=== PATIENT | male | born 1950 | race Hispanic/Latino ===

== ENCOUNTER 2020-04-01 11:37 | Emergency (ER) | payer MEDICARE ==
--- NOTE | 2020-04-01 12:47 | RAD REPORT ---
EXAM DESCRIPTION: US - Extremity Venous Uni Ltd - 04/01/2020 12:42 pm CLINICAL HISTORY: leg pain Leg swelling and edema. COMPARISON: <Comparisons> FINDINGS: Left lower extremity venous system was interrogated with Doppler technique. Normal flow, c ompressibility and augmentation was noted. There is no DVT present. IMPRESSION: No evidence of left lower extremity deep venous thrombosis.
--- NOTE | 2020-04-01 13:05 | ER ---
Nurse's Notes [facility] Name: Pierce Hwang Age: 69 yrs Sex: Male : 1950 Arrival Date: 04/01/2020 Time: 11:42 Bed 8 Private MD: Diagnosis: Pain in left leg Presentation: 04/01 11:45 Chief complaint: Patient states: "I was doing yard work yesterday and I felt a sting on aa5 my chest twice, like something bit me but it didn't". Pt also reports left low back pain radiating to left leg. Reports diarrhea yesterday but denies any today. Pt also reports "nasty taste in my mouth". Pt also reports fatigue x 2 weeks ago. Denies cough/fever. 11:45 Ebola Screen: Patient negative for fever greater than or equal to 101.5 degrees aa5 Fahrenheit, and additional compatible Ebola Virus Disease symptoms. Initial Sepsis Screen: Does the patient meet any 2 criteria? No. Patient's initial sepsis screen is negative. Does the patient have a suspected source of infection? No. Patient's initial sepsis screen is negative. Risk Assessment: Do you want to hurt yourself or someone else? Patient reports no desire to harm self or others. Onset of symptoms was March 2020. 11:45 Method Of Arrival: Ambulatory aa5 11:45 Acuity: JOE 3 aa5 11:45 Coronavirus screen: diarrhea, fatigue. aa5 Historical: - Allergies: 11:48 NKDA; aa5 - Home Meds: 12:00 lisinopril 20 mg Oral tab 1 tab once daily [Active]; tw2 - PMHx: 11:48 Hyperlipidemia; Hypertension; aa5 - PSHx: 11:48 right leg; Hernia repair; aa5 - Immunization history:: Adult Immunizations unknown. - Social history:: Smoking status: Patient denies any tobacco usage or history of. Screenin:59 Abuse screen: Denies threats or abuse. Nutritional screening: No deficits noted. tw2 Tuberculosis screening: No symptoms or risk factors identified. Fall Risk None identified. Assessment: 11:58 General: Appears in no apparent distress. Behavior is calm, cooperative, appropriate tw2 for age. Pain: Pain: Complains of pain in left leg. 11:58 Neuro: Level of Consciousness is awake, alert, obeys commands, Oriented to person, tw2 place, time, situation. Cardiovascular: Heart tones S1 S2 Patient's skin is warm and dry. Respiratory: Airway is patent Respiratory effort is even, unlabored, Respiratory pattern is regular, symmetrical, Breath sounds are clear bilaterally. GI: No signs and/or symptoms were reported involving the gastrointestinal system. : No signs and/or symptoms were reported regarding the genitourinary system. EENT: No signs and/or symptoms were reported regarding the EENT system. Derm: No signs and/or symptoms reported regarding the dermatologic system. Musculoskeletal: Range of motion: intact in all extremities. 13:12 Reassessment: Patient appears in no apparent distress at this time. No changes from tw2 previously documented assessment. Patient and/or family updated on plan of care and expected duration. Pain level reassessed. Patient is alert, oriented x 3, equal unlabored respirations, skin warm/dry/pink. Vital Signs: 11:45 BP 127 / 70; Pulse 56; Resp 18 S; Temp 98.7(O); Pulse Ox 99% on R/A; Weight 81.65 kg aa5 (R); Height 5 ft. 5 in. (165.10 cm) (R); Pain 7/10; 13:00 BP 131 / 88; Pulse 68; Resp 17; Pulse Ox 99% on R/A; tw2 11:45 Body Mass Index 29.95 (81.65 kg, 165.10 cm) aa5 ED Course: 11:42 Patient arrived in ED. mr 11:45 Arm band placed on. aa5 11:54 Triage completed. aa5 11:55 [facility] 11:55 Dave Stinson MD is Attending Physician. jmm 11:59 Christie Farah, RAJESH is Primary Nurse. tw2 11:59 Bed in low position. Call light in reach. tw2 12:43 US Extremity Venous Unilateral Ltd In Process Unspecified. EDMS 13:12 No provider procedures requiring assistance completed. Patient did not have IV access tw2 during this emergency room visit. Administered Medications: No medications were administered Outcome: 13:05 Discharge ordered by . jmm 13:12 Discharged to home ambulatory. tw2 13:12 Condition: stable 13:12 Discharge instructions given to patient, Instructed on discharge instructions, follow up and referral plans. no drinking with medication, no driving heavy equipment, medication usage, Demonstrated understanding of instructions, follow-up care, medications, Prescriptions given X 1. 13:16 Patient left the ED. tw Signatures: Dispatcher [employer] EDMS Mario Molina PA PA jmm Carolann Bales, Migdalia, RN RN aa5 Christie Farah RN RN tw Corrections: (The following items were deleted from the chart) 11:55 11:45 BP 127 / 70; Pulse 56bpm; Resp 18bpm; Spontaneous; Pulse Ox 99% RA; Temp 98.7F aa5 Oral; 81.65 kg Reported; Height 5 ft. 5 in. Reported; BMI: 29.9; aa5 1156 11:45 Chief complaint: Patient states: "I was doing yard work yesterday and I felt a aa5 sting on my chest twice, like something bit me but it didn't". Pt also reports left low back pain radiating to left leg. Reports diarrhea yesterday but denies any today. Pt also reports "nasty taste in my mouth" aa5 11:45 Chief complaint: Patient states: "I was doing yard work yesterday and I felt a aa5 sting on my chest twice, like something bit me but it didn't". Pt also reports left low back pain radiating to left leg. Reports diarrhea yesterday but denies any today. Pt also reports "nasty taste in my mouth". Pt also reports fatigue x 2 weeks ago. aa5 12:00 11:48 Home Meds: None; aa5 tw 13:15 11:58 Pain: tw2 tw2
--- NOTE | 2020-04-01 13:05 | EDPHYS ---
Physician Documentation [facility] Name: Pierce Hwang Age: 69 yrs Sex: Male : 1950 Arrival Date: 04/01/2020 Time: 11:42 Bed 8 Private MD: ED Physician Dave Stinson HPI: 04/01 12:01 This 69 yrs old Male presents to ER via Ambulatory with complaints of Bee jmm Sting, Leg Pain. 12:01 The patient presents with pain, that is acute. Onset: The symptoms/episode jmm began/occurred 1 day(s) ago. Modifying factors: The symptoms are alleviated by nothing. the symptoms are aggravated by nothing. Associated signs and symptoms: Pertinent positives: calf tenderness, swelling, Pertinent negatives fever, numbness. This is a 69 year old male with a history of hlp, htn that presents to the ED with complaints of left leg pain beginning yesterday, radiating into the groin. Patient states he had difficulty walking. Patient states also having pain in his left glut. Patient currently denies chest pain, shortness of breath. Denies back injury. Denies incontinence, weakness, numbness to the leg. . Historical: - Allergies: 11:48 NKDA; aa5 - Home Meds: 12:00 lisinopril 20 mg Oral tab 1 tab once daily [Active]; tw2 - PMHx: 11:48 Hyperlipidemia; Hypertension; aa5 - PSHx: 11:48 right leg; Hernia repair; aa5 - Immunization history:: Adult Immunizations unknown. - Social history:: Smoking status: Patient denies any tobacco usage or history of. ROS: 12:01 Constitutional: Negative for fever, chills, and weight loss, Cardiovascular: Negative jmm for chest pain, palpitations, and edema, Respiratory: Negative for shortness of breath, cough, wheezing, and pleuritic chest pain, Abdomen/GI: Negative for abdominal pain, nausea, vomiting, diarrhea, and constipation. 12:01 MS/extremity: Positive for pain. 12:01 All other systems are negative. Exam: 12:01 Constitutional: This is a well developed, well nourished patient who is awake, alert, jmm and in no acute distress. Head/Face: atraumatic. Eyes: EOMI, no conjunctival erythema appreciated ENT: Moist Mucus Membranes Neck: Trachea midline, Supple Chest/axilla: Normal chest wall appearance and motion. Cardiovascular: Regular rate and rhythm. No edema appreciated Respiratory: Normal respirations, no respiratory distress appreciated Abdomen/GI: Non distended, soft Back: Normal ROM Skin: General appearance color normal 12:01 Musculoskeletal/extremity: ROM: intact in all extremities, full dorsalis pulse, < 2 sec dist cap refill, NVI. 12:01 Skin: Appearance: Color: normal in color. 12:01 Neuro: Orientation: is normal, Mentation: is normal, Memory: is normal. 12:01 Psych: Behavior/mood is pleasant, cooperative. Vital Signs: 11:45 BP 127 / 70; Pulse 56; Resp 18 S; Temp 98.7(O); Pulse Ox 99% on R/A; Weight 81.65 kg aa5 (R); Height 5 ft. 5 in. (165.10 cm) (R); Pain 7/10; 13:00 BP 131 / 88; Pulse 68; Resp 17; Pulse Ox 99% on R/A; tw2 11:45 Body Mass Index 29.95 (81.65 kg, 165.10 cm) aa5 MDM: 12:01 Patient medically screened. [facility] 13:01 Data reviewed: vital signs, nurses notes. Counseling: I had a detailed discussion with bryon the patient and/or guardian regarding: the historical points, exam findings, and any diagnostic results supporting the discharge/admit diagnosis, radiology results, the need for outpatient follow up, to return to the emergency department if symptoms worsen or persist or if there are any questions or concerns that arise at home. ED course: Patient is alert and non toxic in appearance in the ED. Pain most likely MS. Patient was working out in his yard yesterday. Patient currently denies chest pain, shortness of breath. I do not suspect ACS or PE. US of the leg is negative for DVT. Full dorsalis pulse, I do not suspect PVD/occlusion. No incontinence, extensor hallucis longus intact, negative straight leg raise. I do not suspect sciatica, cord compression, cauda equina. Patient will follow up with pcp in 2 to 3 days and otherwise given strict return precautions to return to the ED if he develops chest pain, SOB, fever, abdominal pain, worsening leg pain, ect. Patient understood and agrees with the plan of care. . 04/01 12:11 Order name: US Extremity Venous Unilateral Ltd; Complete Time: 12:49 [facility] Administered Medications: No medications were administered Disposition: 17:38 Co-signature as Attending Physician, Dave Stinson MD I agree with the assessment and kdr plan of care. Disposition: 04/01/20 13:05 Discharged to Home. Impression: Pain in left leg. - Condition is Stable. - Discharge Instructions: Musculoskeletal Pain. - Prescriptions for orphenadrine citrate 100 mg Oral Tablet Sustained Release - take 1 tablet by ORAL route 2 times per day As needed; 20 tablet. - Medication Reconciliation Form, Thank You Letter, Antibiotic Education, Prescription Opioid Use form. - Follow up: Private Physician; When: 2 - 3 days; Reason: Recheck today's complaints, Continuance of care, Re-evaluation by your physician. Signatures: Dispatcher [employer] EDMS Dave Stinson MD MD kdr Mickail, Joel, PA PA jmm Calderon, Audri RN RN aa5 Christie Farah RN RN tw2 Corrections: (The following items were deleted from the chart) 12:00 11:48 Home Meds: None; aa5 tw2 13:16 13:05 04/01/2020 13:05 Discharged to Home. Impression: Pain in left leg. Condition is tw2 Stable. Forms are Medication Reconciliation Form, Thank You Letter, Antibiotic Education, Prescription Opioid Use. Follow up: Private Physician; When: 2 - 3 days; Reason: Recheck today's complaints, Continuance of care, Re-evaluation by your physician. bryon
[2020-04-05 14:13] VITALS: BP 127/70; TEMP 98.7; O2SAT 99
== END 2020-04-01 13:16 | disposition home or self-care (01) ==
LOC: ER 11:37
DX: M79.605 Pain in left leg (principal); W57.XXXA Bitten or stung by nonvenomous insect and other nonvenomous arthropods, initial encounter; I10 Essential (primary) hypertension
CPT/HCPCS: 93971; 99283

== ENCOUNTER 2021-07-28 09:34 | Emergency (ER) | payer MEDICARE ==
--- OUTSIDE RECORDS SUMMARY | 2021-07-28 09:37 | XMS REPORT | Continuity of Care Document ---
:1950 Author Organization [facility] t Address [address] [place] [address] [address]. [address] [place] [address] Care Team Providers Name Role Phone AlfonzokerwinAmy Marsh Attending Clinician Payers Payer Name Policy Type Policy Number Effective Date Expiration Date S ource Problems Condition Condition Condition Status Onset Resolution Last Treating Co mments Source Name Details Category Date Date Treatment Clinician Date No known No known Disease Unive rs active active ity of problems problems [facility] Allergies, Adverse Reactions, Alerts Allergy Allergy Status Severity Reaction(s) Onset Inactive Treating Comm ents Source Name Type Date Date Clinician NO KNOWN Drug Active Univers ALLERGIE Class ity of S [facility] Social History Social Habit Start Date Stop Date Quantity Comments Source Sex Assigned At Uni versity [facility] Exposure to SARS-CoV-2 Not sure [facility] [place] (event) [facility] Smoking Status Start Date Stop Date Source Unknown if ever smoked Universit [facility] Medications Ordered Filled Start Stop Current Ordering Indication Dosage Frequency Signature Comments Components Source Medication Medication Date Date Medication? Clinician (SIG) Name Name NaCl 0.9% 2019-08 2020- No 1000mL at 999 Uni vers (NS) bolus - 11-22 mL/hr, ity of infusion 21:00: 23:18 1,000 mL, Shar as 1,000 mL 00 :00 IV Medical Infusion, Branch ONCE, 1 dose, 06/26/20 at 1500, KVNG No known No Univers medications [facility] Vital Signs Vital Name Observation Time Observation Value Comments Source Systolic blood 2020-06-26 22:00:00 152 mm[Hg] Univer sity of pressure [facility] Diastolic blood 2020-06-26 22:00:00 75 mm[Hg] Unive rsity of pressure [facility] Heart rate 2020-06-26 22:00:00 52 /min [facility] Respiratory rate 2020-06-26 22:00:00 18 /min [facility] Oxygen saturation in 2020-06-26 22:00:00 99 /min [facility] Arterial blood by [facility] Pulse oximetry Branch Body temperature 2020-06-26 19:38:00 36.67 Ruth Ann [facility] Body weight 2020-06-26 19:38:[address] [facility] Procedures Procedure Date / Time Performing Clinician Source Performed CT HEAD WO CONTRAST 2020-06-26 20:44:17 Amy Curran [facility] LIPASE 2020-06-26 19:45:[address] [facility] TROPONIN I 2020-06-26 19:45:[address] [facility] COMP. METABOLIC PANEL 2020-06-26 19:45:00 [id number] CBC WITH DIFF 2020-06-26 19:45:[address] [facility] PROTHROMBIN TIME / INR 2020-06-26 19:45:00 Amy Curran U [facility] ACTIVATED PARTIAL 2020-06-26 19:45:00 [facility] (ID NOW RAPID 2020-06-26 19:45:00 Amy Curran U [facility] TESTING) [facility] NOTICE OF PRIVACY 2020-06-26 19:22:14 Doctor Unassigned, No [facility] PRACTICES Name Medical Branch Encounters Start End Encounter Admission Attending Care Care Encounter Source Date/Time Date/Time Type Type Clinicians Facility Department ID 2020-06-26 2020-06-26 Emergency VALENTINE Curran [id number] Univers 13:32:00 17:19:00 Amy Wong [id number] [facility] Seth [id number] [facility] [id number] [facility] 084 Branch 2020-06-26 2020-06-26 Emergency X [facility] ERT [id number] Univers 13:23:00 13:23:00 ity [facility] Results Test Description Test Time Test Comments Results Result Sourc e Comments CT HEAD WO 2020-06-06 No acute [facility] CONTRAST 2 [facility] 22:09:13 abnormality. Branch Preliminary Report Dictated by Resident: Kelsi Hedrick MD., have reviewed this study and agree with the abovereport.CT HEAD WO CONTRAST HISTORY: Diplopia COMPARISON: None TECHNIQUE: Contiguous axial CT images of the head were obtained without theuse of intravenous contrast. Coronal and sagittal reformats were provided. FINDINGS: Suboptimal field of view coverage, cerebellar tonsils are not included. The ventricles and cerebral sulci are normal in caliber and configuration.No hydrocephalus, midline shift or pathological extra-axial fluidcollection is present. The basal cisterns are unremarkable. There is no acute intracranial hemorrhage or significant mass effect. Noparenchymal attenuation abnormality. The howell-white matter differentiationis preserved. Intracranial atherosclerosis. Partial empty sellaconfiguration. The mastoid air cells and paranasal air sinuses are clear. The calvariumand central skull base are unremarkable. [facility], Radiant Results Inft User - 06/26/2020 4:10 PM CSTCT HEAD WO CONTRASTHISTORY: Diplopia COMPARISON: NoneTECHNIQUE: Contiguous axial CT images of the head were obtained without theuse of intravenous contrast. Coronal and sagittal reformats were provided.FINDINGS:Sub optimal field of view coverage, cerebellar tonsils are not included.The ventricles and cerebral sulci are normal in caliber and configuration.No hydrocephalus, midline shift or pathological extra-axial fluidcollection is present. The basal cisterns are unremarkable.There is no acute intracranial hemorrhage or significant mass effect. Noparenchymal attenuation abnormality. The howell-white matter differentiationis preserved. Intracranial atherosclerosis. Partial empty sellaconfiguration.Th e mastoid air cells and paranasal air sinuses are clear. The calvariumand central skull base are unremarkable.IMPRESSI ONNo acute intracranial abnormality.Prelimina ry Report Dictated by Resident: Kelsi Lewis MD., have reviewed this study and agree with the abovereport. TROPONIN I 2020-06-26 20:18:00 Test Item Value Reference Range Interpretation Comme nts TROPONIN I (test code = <0.012 See_Comment [Au tomated message] The [id number]) system which ge nerated this result tra nsmitted reference range : <=0.034 ng/mL. The refe rence range was not u sed to interpret this result as normal/abnormal . TANISHA (test code = TANISHA) Equal or Less than 0.034 ng/ml---Normal ?Note: Cardiac troponin begins to rise 3-4 hours after the onset of ischemia. Repeat in 4-6 hours if the sample was drawn within 3-4 hours of the onset of the symptom and found normal. Between 0.035 and 0.120 ng/mL--- Borderline. Questionable myocardial injury or necrosis ? ?Note: Serial measurement may be necessary to confirm or exclude the diagnosis of myocardial injury or necrosis; Clinical correlation (symptoms, EKGs, imaging studies, and others) required; Repeat in 4-6 hours if clinically indicated. ? Equal or Higher than 0.121 ng/mL---Abnormal. Myocardial Injury or Necrosis Likely ? Biotin has been reported to cause a negative bias, interpret results relative to patient's use of biotin. ? Lab Interpretation (test Normal code = 08919-7) [facility] (ID NOW RAPID TESTING)2020-06-26 20:13:00 Test Item Value Reference Range Interpretation Comments SARS-CoV-2 Rapid ID NOW Not Detected Not Detected (test code = 89873-6) TANISHA (test code = TANISHA) ID NOW COVID-19 Assay is an isothermal nucleic acid amplification test intended for the qualitative detection of nucleic acid from SARS-CoV-2 viral RNA in nasopharyngeal (WOOL DYER) specimens. It is used under Emergency Use Authorization (EUA) by FDA. The limit of detection (LOD) of the assay is 125 Genome Equivalents/mL. A positive result is indicative of the presence of SARS-CoV-2 RNA. ?Clinical correlation with patient history and other diagnostic information is necessary to determine patient infection status. A negative (Not Detected) result does not preclude SARS-CoV-2 infection. In patients with clinical symptoms and other tests that are consistent with SARS-CoV-2 infection, negative results should be treated as presumptive negative and a new specimen should be tested with alternative PCR molecular test. Invalid: Please collect a new specimen for repeat patient testing if clinically indicated. Lab Interpretation Normal (test code = 51242-5) [facility]. METABOLIC PANEL (22661)2020-06-26 20:07:00 Test Item Value Reference Range Interpretation Comments NA (test code = 139 mmol/L 135-145 3818904750) K (test code = 4.2 mmol/L 3.5-5 7275004655) CL (test code = 102 mmol/L 98-108 9267517843) CO2 TOTAL (test code = 27 mmol/L 23-31 0407609466) AGAP (test code = 2-16 3763769506) BUN (test code = 17 mg/dL 7-23 2353204739) GLUCOSE (test code = 104 mg/dL 70-110 6588601476) CREATININE (test code 0.96 mg/dL 0.6-1.25 = 7799106778) TOTAL BILI (test code 0.8 mg/dL 0.1-1.1 = 8710352621) CALCIUM (test code = 9.3 mg/dL 8.6-10.6 1681047511) T PROTEIN (test code = 7.3 g/dL 6.3-8.2 5984093035) ALBUMIN (test code = 4.4 g/dL 3.5-5 1162900041) ALK PHOS (test code = 78 U/L 34-122 5126234779) ALTv (test code = 17 U/L 5-50 1742-6) AST(SGOT) (test code = 23 U/L 13-40 0047048812) eGFR Calculation mL/min/1.73m2 (Non-) (test code = 2328510229) eGFR Calculation mL/min/1.73m2 () (test code = 4354364200) TANISHA (test code = TANISHA) Association of Glomerular Filtration Rate (GFR) and Staging of Kidney Disease* + -+ + ---+| GFR (mL/min/1.73 m2) ?| With Kidney Damage ?| ?Without Kidney Damage+ -------+ ------+ ---------+| ?>90 ?| ?Stage one ?| ? Normal ?+ --+ -+ ----+| ?60-89 ?| ?Stage two ?| ? Decreased GFR ? + -+ + ---+| ?30-59 ?| ?Stage three ?| ? Stage three ? + -+ + ---+| ?15-29 ?| ?Stage four ? | ? Stage four ?+ --+ -+ ----+| ?<15 (or dialysis) ? ?| ?Stage five ? | ? Stage five ?+ --+ -+ ----+ *Each stage assumes the associated GFR level has been in effect for at least three months. ?Stages 1 to 5, with or without kidney disease, indicate chronic kidney disease. Notes: Determination of stages one and two (with eGFR >59mL/min/1.73 m2) requires estimation of kidney damage for at least three months as defined by structural or functional abnormalities of the kidney, manifested by either:Pathological abnormalities or Markers of kidney damage (including abnormalities in the composition of the blood or urine or abnormalities in imaging tests). [facility], [id number] 20:07:00 Test Item Value Reference Range Interpretation Comments LIPASE (test code = 3270719032) 129 U/L 0-220 Lab Interpretation (test code = Normal 17569-8) [facility] WITH [id number] 20:07:00 Test Item Value Reference Range Interpretation Comments WBC (test code = See_Comment [Automated 5760-2) message] The sy stem which generated this result transmitted reference range : 4.20 - 10.70 10*3/?L. The reference range was not used to interpret this result as normal/abnormal . RBC (test code = See_Comment [Automated 835-3) message] The sy stem which generated this result transmitted reference range : 4.26 - 5.52 10*6/?L. The reference range was not used to interpret this result as normal/abnormal . HGB (test code = 15.5 g/dL 12.2-16.4 718-7) HCT (test code = 44.5 % 38.4-49.3 4544-3) MCV (test code = 88.3 fL 81.7-95.6 787-2) MCH (test code = 30.8 pg 26.1-32.7 785-6) MCHC (test code = 34.8 g/dL 31.2-35 786-4) RDW-SD (test code = 39.3 fL 38.5-51.6 15056-4) RDW-CV (test code = 12.1 % 12.1-15.4 788-0) PLT (test code = See_Comment L [Automated 777-3) message] The sy stem which generated this result transmitted reference range : 150 - 328 10*3/ ?L. The reference r mariana was not used to interpret this result as normal/abnormal . MPV (test code = 11.6 fL 9.8-13 95423-1) IPF % (test code = 6.9 % 1.2-10.7 Platelet count [id number]) measured by fluorescence method. NRBC/100 WBC (test See_Comment [Automat ed code = 6889791165) message] The system which generated this result transmitted reference range : 0.0 - 10.0 /100 WBCs. The refer ence range was not u sed to interpret th is result as normal/abnormal . NRBC x10^3 (test code <0.01 See_Comment [Auto mated = 7294927327) message] The s ystem which generated this result transmitted reference range : 10*3/?L. The reference range was not used to interpret this result as normal/abnormal . GRAN MAT (NEUT) % 56.6 % (test code = 770-8) IMM GRAN % (test code 0.20 % = 5922375071) LYMPH % (test code = 31.1 % 736-9) MONO % (test code = 7.5 % 5905-5) EOS % (test code = 3.9 % 713-8) BASO % (test code = 0.7 % 706-2) GRAN MAT x10^3(ANC) 3.23 10*3/uL 1.99-6.95 (test code = 7218649223) IMM GRAN x10^3 (test <0.03 0-0.06 code = 8887916377) LYMPH x10^3 (test code 1.77 10*3/uL 1.09-3.23 = 731-0) MONO x10^3 (test code 0.43 10*3/uL 0.36-1.02 = 742-7) EOS x10^3 (test code = 0.22 10*3/uL 0.06-0.53 711-2) BASO x10^3 (test code 0.04 10*3/uL 0.01-0.09 = 704-7) Lab Interpretation Abnormal (test code = 52993-4) [facility]eraPTT2020-11-22 20:05:00 Test Item Value Reference Range Interpretation Comments APTT Patient (test See_Comment [Automat ed code = 3173-2) message] The system which generated this result transmitted reference range : 23 - 38 Seconds . The reference range was not used to interpr et this result as normal/abnormal . TANISHA (test code = TANISHA) The [facility] patient population mean normal value for aPTT is 30 seconds. Lab Interpretation Normal (test code = 33383-6) [facility] CenterPROTHROMBIN TIME / [id number] 20:03:00 Test Item Value Reference Range Interpretation Comments PROTIME PATIENT (test See_Comment [Auto mated message] code = 5964-2) The system wh ich generated this result transmitted ref erence range: 12.0 - 1 4.7 Seconds. The re ference range was not u sed to interpret this result as normal/abnor mal. INR (test code = 6301-6) Nor mal INR <1.1; Warfarin Therap eutic range 2.0 to 3. 0 or 2.5 to 3.5, dep ending upon the indica tions. Lab Interpretation (test Normal code = 38912-3) [facility]"
[2021-07-28 10:09] LABS: Urine Blood Trace-lysed (Negative); Urine Glucose Negative (Negative); Urine Protein Negative (Negative); Urine Specific Gravity 1.015 (1.005-1.030)
[2021-07-28 10:11] LABS: Protime INR 1.12
[2021-07-28 10:13] LABS: Absolute Lymphocytes (CBC) 0.7 K/uL (0.7-4.9); Basophils % 0.5 % (0-1.3); Hematocrit 46.9 % (39.6-49.0); Lymphocytes % 13.5 % (15.3-44.8); RBC Red Blood Cell Count 5.24 M/uL (4.33-5.43)
[2021-07-28 10:26] LABS: Barbiturates NEGATIVE (NEGATIVE); Benzodiazepines NEGATIVE (NEGATIVE); Cocaine NEGATIVE (NEGATIVE); METHAMPHETAM NEGATIVE (NEGATIVE); Methadone NEGATIVE (NEGATIVE); Opiates NEGATIVE (NEGATIVE); Phencyclidine NEGATIVE (NEGATIVE); THC Cannibis NEGATIVE (NEGATIVE)
[2021-07-28 10:28] LABS: ALT/SGPT 26 U/L (12-78); Alkaline Phosphatase 100 U/L (45-117); BUN Blood Urea Nitrogen 14 mg/dL (7-18); Bicarbonate 28 mmol/L (21-32); Bilirubin Direct < 0.1 mg/dL (0-0.2); Bilirubin Total 0.4 mg/dL (0.2-1.0); Glucose Level 111 mg/dL (74-106); Protein, Total 8.1 g/dL (6.4-8.2); Sodium Level 137 mmol/L (136-145)
[2021-07-28 10:38] LABS: AST/SGOT 19 U/L (15-37); Potassium 3.8 mmol/L (3.5-5.1)
--- NOTE | 2021-07-28 11:32 | EDPHYS ---
Physician Documentation [facility] Name: Pierce Hwang Age: 70 yrs Sex: Male : 1950 Arrival Date: 07/28/2021 Time: 09:39 Bed 3 Private MD: ED Physician Leandra Tello HPI: 07/28 09:55 This 70 yrs old Male presents to ER via EMS with complaints of AntiFreeze jr8 Ingestion . 09:55 The patient presents to the emergency department with a known poisoning. Context: jr8 Method: the patient has a confirmed or suspected ingestion, antifreeze, the OD/poisoning occurred at at home. Associated signs and symptoms: Pertinent positives: paresthesias of the leg. Severity of symptoms: At their worst the symptoms were mild in the emergency department the symptoms are unchanged. The patient has not experienced similar symptoms in the past. The patient has not recently seen a physician. Patient stated that he was working on his car. Was detaching antifreeze hose which went into his tea that he was drinking. Stated that he had not realized that and went to drink his tea. Stated that he most likely ingested a small cups worth of the antifreeze. Now having paresthesias to lower upper leg . Historical: - Allergies: 09:44 NKDA; jd3 - Home Meds: 09:44 None [Active]; jd3 - PMHx: 09:44 Hyperlipidemia; Hypertension; jd3 - PSHx: 09:44 None; jd3 - Immunization history:: Adult Immunizations up to date, Client reports receiving the 2nd dose of the Covid vaccine, Date received: December 24, 2020. - Social history:: Smoking status: Patient denies any tobacco usage or history of. ROS: 10:17 Eyes: Negative for injury, pain, redness, and discharge, ENT: Negative for injury, jr8 pain, and discharge, Neck: Negative for injury, pain, and swelling, Cardiovascular: Negative for chest pain, palpitations, and edema, Respiratory: Negative for shortness of breath, cough, wheezing, and pleuritic chest pain, Abdomen/GI: Negative for abdominal pain, nausea, vomiting, diarrhea, and constipation, Back: Negative for injury and pain, MS/Extremity: Negative for injury and deformity, Skin: Negative for injury, rash, and discoloration. 10:17 Neuro: Positive for tingling. Exam: 10:17 Constitutional: This is a well developed, well nourished patient who is awake, alert, jr8 and in no acute distress. ENT: Nares patent. No nasal discharge, no septal abnormalities noted. Tympanic membranes are normal and external auditory canals are clear. Oropharynx with no redness, swelling, or masses, exudates, or evidence of obstruction, uvula midline. Mucous membranes moist. Neck: Trachea midline, no thyromegaly or masses palpated, and no cervical lymphadenopathy. Supple, full range of motion without nuchal rigidity, or vertebral point tenderness. No Meningismus. Cardiovascular: Regular rate and rhythm with a normal S1 and S2. No gallops, murmurs, or rubs. Normal PMI, no JVD. No pulse deficits. Respiratory: Lungs have equal breath sounds bilaterally, clear to auscultation and percussion. No rales, rhonchi or wheezes noted. No increased work of breathing, no retractions or nasal flaring. Abdomen/GI: Soft, non-tender, with normal bowel sounds. No distension or tympany. No guarding or rebound. No evidence of tenderness throughout. Back: No spinal tenderness. No costovertebral tenderness. Full range of motion. Skin: Warm, dry with normal turgor. Normal color with no rashes, no lesions, and no evidence of cellulitis. MS/ Extremity: Pulses equal, no cyanosis. Neurovascular intact. Full, normal range of motion. Neuro: Awake and alert, GCS 15, oriented to person, place, time, and situation. Cranial nerves II-XII grossly intact. Motor strength 5/5 in all extremities. Sensory grossly intact. Cerebellar exam normal. Normal gait. Vital Signs: 09:45 BP 139 / 72; Pulse 65; Resp 18 S; Temp 98.6(O); Pulse Ox 99% on R/A; Weight 81.65 kg jd3 (R); Height 5 ft. 5 in. (165.10 cm) (R); Pain 5/10; 10:57 BP 152 / 68; Pulse 61; Resp 16 S; Pulse Ox 98% on R/A; jd3 09:45 Body Mass Index 29.95 (81.65 kg, 165.10 cm) jd3 MDM: 09:[address] [facility] 11:25 Data reviewed: vital signs, nurses notes, lab test result(s), EKG. Data interpreted: [facility] Pulse oximetry: on room air is 98 %. Interpretation: normal. Counseling: I had a detailed discussion with the patient and/or guardian regarding: the historical points, exam findings, and any diagnostic results supporting the discharge/admit diagnosis, lab results, the need for outpatient follow up, a family practitioner, to return to the emergency department if symptoms worsen or persist or if there are any questions or concerns that arise at home. ED course: Patient has been remained hemodynamically stable. Had osmol gap of 1 which is well within acceptable range. Remainder of labs unremarkable. Conferred with Poison control as well. Recommended no other treatment at this time as it is very unlikely that he will have any effects at this point as ingestion was 3pm yesterday. Relayed this to patient who is good with plan as well and will go home and f/u with PCP. 11:28 ED course: Poison control case # [id number]. [facility] 07/28 09:40 Order name: Acetaminophen [facility] 07/28 09:40 Order name: Basic Metabolic Panel [facility] 07/28 09:40 Order name: CBC with Diff [facility] 07/28 09:40 Order name: ETOH Level [facility] 07/28 09:40 Order name: Hepatic Function; Complete Time: 10:41 [facility] 07/28 09:40 Order name: PT-INR; Complete Time: 10:21 [facility] 07/28 09:40 Order name: Ptt, Activated; Complete Time: 10:21 [facility] 07/28 09:40 Order name: Salicylate; Complete Time: 10:41 [facility] 07/28 09:40 Order name: Urine Drug Screen; Complete Time: 10:28 [facility] 07/28 09:40 Order name: Osmolality, Serum; Complete Time: 10:54 [facility] 07/28 09:40 Order name: Urine Osmolality; Complete Time: 10:54 [facility] 07/28 09:40 Order name: Acetaminophen Level; Complete Time: 10:41 [facility] 07/28 09:40 Order name: Basic Metabolic Panel; Complete Time: 10:41 [facility] 07/28 09:40 Order name: CBC with Automated Diff; Complete Time: 10:21 [facility] 07/28 09:40 Order name: EKG; Complete Time: 09:41 [facility] 07/28 09:40 Order name: EKG - Nurse/Tech; Complete Time: 09:55 jr8 07/28 09:40 Order name: IV Saline Lock; Complete Time: :55 jr8 07/28 09:40 Order name: Labs collected and sent; Complete Time: 09:55 jr8 07/28 09:40 Order name: Urine Dipstick-Ancillary (obtain specimen); Complete Time: 10:10 jr8 07/28 09:40 Order name: Alcohol Serum/Plasma; Complete Time: 10:41 EDMS 07/28 10:09 Order name: Urine Dipstick-Ancillary; Complete Time: 10:21 EDMS Administered Medications: No medications were administered Disposition Summary: 07/28/21 11:31 Discharge Ordered Location: Home jr8 Problem: new jr8 Symptoms: are unchanged jr8 Condition: Stable jr8 Diagnosis - Toxic effect of glycols, accidental (unintentional), initial encounter jr8 Followup: jr8 - With: Private Physician - When: 2 - 3 days - Reason: Recheck today's complaints, Continuance of care, Re-evaluation by your physician Discharge Instructions: - Discharge Summary Sheet jr8 - Nontoxic Ingestion, Adult jr8 Forms: - Medication Reconciliation Form jr8 - Thank You Letter jr8 - Antibiotic Education jr8 - Prescription Opioid Use jr8 Addendum: 07/30/2021 18:48 Co-signature as Attending Physician, Leandra Tello MD PA/[employer] DIRECTOR's history reviewed, m a2 patient interviewed, and examined. I agree with assessment and care plan and confirm the diagnosis (es) above. Signatures: Dispatcher [employer] EDAZ Jorge Alberto Baird PA PA jr8 Dale Villela RN RN jd3 Leandra Tello MD MD ma2 Corrections: (The following items were deleted from the chart) 07/28 09:47 09:40 Suicide Screening ([employer]) ordered. jr8 jd3 10:17 09:55 Patient stated that he was working on his car. Was detaching antifreeze hose jr8 which went into his tea that he was drinking. Stated that he had not realized that and went to drink his tea. Stated that he most likely ingested a small cups worth of the antifreeze . jr8
--- NOTE | 2021-07-28 11:32 | ER ---
Nurse's Notes [facility] Name: Pierce Hwang Age: 70 yrs Sex: Male : 1950 Arrival Date: 07/28/2021 Time: 09:39 Bed 3 Private MD: Diagnosis: Toxic effect of glycols, accidental (unintentional), initial encounter Presentation: 07/28 09:41 Chief complaint: EMS states: "yesterday the pt reports drinking about a cup of jd3 antifreeze that had dripped into his tea while working under his car at 1500. pt reported having stomach pain last night with having problems urinating today.". Coronavirus screen: At this time, the client does not indicate any symptoms associated with coronavirus-19. Ebola Screen: Patient negative for fever greater than or equal to 101.5 degrees Fahrenheit, and additional compatible Ebola Virus Disease symptoms. Initial Sepsis Screen: Does the patient meet any 2 criteria? No. Patient's initial sepsis screen is negative. Does the patient have a suspected source of infection? No. Patient's initial sepsis screen is negative. Risk Assessment: Do you want to hurt yourself or someone else? Patient reports no desire to harm self or others. Onset of symptoms was July 27, 2021. 09:41 Method Of Arrival: EMS: [facility] jd3 09:41 Acuity: JOE 3 jd3 09:43 Note poison control contacted by EMS. case # [id number]. jd3 Historical: - Allergies: 09:44 NKDA; jd3 - Home Meds: 09:44 None [Active]; jd3 - PMHx: 09:44 Hyperlipidemia; Hypertension; jd3 - PSHx: 09:44 None; jd3 - Immunization history:: Adult Immunizations up to date, Client reports receiving the 2nd dose of the Covid vaccine, Date received: December 24, 2020. - Social history:: Smoking status: Patient denies any tobacco usage or history of. Screenin:46 Abuse screen: Denies threats or abuse. Nutritional screening: No deficits noted. jd3 Tuberculosis screening: No symptoms or risk factors identified. Fall Risk Ambulatory Aid- None/Bed Rest/Nurse Assist (0 pts). Gait- Normal/Bed Rest/Wheelchair (0 pts) Mental Status- Oriented to own ability (0 pts). Total Mahan Fall Scale indicates No Risk (0-24 pts). Assessment: 09:55 General: Appears in no apparent distress. comfortable, Behavior is calm, cooperative, jd3 appropriate for age. Pain: Complains of pain in abdomen Quality of pain is described as aching, pressure. Neuro: Level of Consciousness is awake, alert, obeys commands, Oriented to person, place, time, situation. Cardiovascular: Denies chest pain, Capillary refill < 3 seconds Patient's skin is warm and dry. Respiratory: Airway is patent Respiratory effort is even, unlabored, Respiratory pattern is regular, symmetrical, Denies cough, shortness of breath. GI: Abdomen is round non-distended, Abd is soft and non tender X 4 quads. Reports lower abdominal pain. : Reports inability to void. EENT: No signs and/or symptoms were reported regarding the EENT system. Derm: Skin is intact, Skin is dry, Skin is normal, Skin temperature is warm. Musculoskeletal: No signs and/or symptoms reported regarding the musculoskeletal system. 10:57 Reassessment: Patient appears in no apparent distress at this time. No changes from jd3 previously documented assessment. Patient and/or family updated on plan of care and expected duration. Pain level reassessed. Patient is alert, oriented x 3, equal unlabored respirations, skin warm/dry/pink. 11:40 Reassessment: Patient appears in no apparent distress at this time. No changes from jd3 previously documented assessment. Patient and/or family updated on plan of care and expected duration. Pain level reassessed. Patient is alert, oriented x 3, equal unlabored respirations, skin warm/dry/pink. Vital Signs: 09:45 BP 139 / 72; Pulse 65; Resp 18 S; Temp 98.6(O); Pulse Ox 99% on R/A; Weight 81.65 kg jd3 (R); Height 5 ft. 5 in. (165.10 cm) (R); Pain 5/10; 10:57 BP 152 / 68; Pulse 61; Resp 16 S; Pulse Ox 98% on R/A; jd3 09:45 Body Mass Index 29.95 (81.65 kg, 165.10 cm) j ED Course: 09:39 Patient arrived in ED. jr8 09:39 Jorge Alberto Baird PA is PHCP. jr8 09:39 Leandra Tello MD is Attending Physician. jr8 09:43 Triage completed. jd3 09:45 Arm band placed on. jd3 09:46 Dale Villela, RN is Primary Nurse. jd3 09:46 Patient has correct armband on for positive identification. Bed in low position. Call jd3 light in reach. Side rails up X 1. Adult w/ patient. 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 Pulse ox on. NIBP on. 10:10 Inserted saline lock: 20 gauge in left antecubital area, using aseptic technique. Blood jd3 collected. placed by Kathy MENA. 11:39 No provider procedures requiring assistance completed. IV discontinued, intact, jd3 bleeding controlled, No redness/swelling at site. Pressure dressing applied. Administered Medications: No medications were administered Outcome: 11:31 Discharge ordered by . jr8 11:39 Discharged to home ambulatory, with family. jd3 11:39 Condition: stable 11:39 Discharge instructions given to patient, family, Instructed on discharge instructions, follow up and referral plans. Demonstrated understanding of instructions, follow-up care. 11:40 Patient left the ED. jd3 Signatures: Jorge Alberto Baird PA PA jr8 Dale Villela, RN RN jd3
[2021-07-28 11:47] VITALS: TEMP 98.6
[2021-07-28 11:48] VITALS: BP 152/68; O2SAT 98
== END 2021-07-28 11:40 | disposition home or self-care (01) ==
LOC: ER 09:34
DX: R20.2 Paresthesia of skin (principal); T52.3X1A Toxic effect of glycols, accidental (unintentional), initial encounter; I10 Essential (primary) hypertension
CPT/HCPCS: 36415; 80048; 80076; 80307; 80320; 80329; 81003; 83930; 83935; 85025; 85610; 85730; 93005; 99284

== ENCOUNTER 2022-03-31 13:54 | Emergency (ER) | payer MEDICARE, OTHER ==
--- OUTSIDE RECORDS SUMMARY | 2022-03-31 13:58 | XMS REPORT | Continuity of Care Document ---
:1950 Author Organization [facility] t Address [address] [place] [address] [address] [place] [address] Care Team Providers Name Role Phone AlfonzokerwinAmy Marsh Attending Clinician Payers Payer Name Policy Type Policy Number Effective Date Expiration Date S ource Problems Condition Condition Condition Status Onset Resolution Last Treating Co mments Source Name Details Category Date Date Treatment Clinician Date No known No known Disease Unive rs active active ity of problems problems [facility] Allergies, Adverse Reactions, Alerts Allergy Allergy Status Severity Reaction(s) Onset Inactive Treating Comm ents Source Name Type Date Date Clinician NO KNOWN Drug Active Univers ALLERGIE Class ity of S [facility] Social History Social Habit Start Date Stop Date Quantity Comments Source Sex Assigned At Uni versity [facility] Exposure to SARS-CoV-2 Not sure [facility] [place] (event) [facility] Smoking Status Start Date Stop Date Source Unknown if ever smoked [facility] Medications Ordered Filled Start Stop [...] 1500, KVNG No known No Univers medications [facility] Vital Signs Vital Name Observation Time Observation Value Comments Source Systolic blood 2020-06-26 22:00:00 152 mm[Hg] Univer sity of pressure [facility] Diastolic blood 2020-06-26 22:00:00 75 mm[Hg] Unive rsity of pressure [facility] Heart rate 2020-06-26 22:00:00 52 /min [facility] Respiratory rate 2020-06-26 22:00:00 18 /min General acute hospital Oxygen saturation in 2020-06-26 22:00:00 99 /min [facility] Arterial blood by [facility] Pulse oximetry Branch Body temperature 2020-06-26 19:38:00 36.67 Ruth Ann [facility] acute hospital Body weight 2020-06-26 19:38:00 86.183 kg [facility] Procedures Procedure Date / Time Performing Clinician Source Performed CT HEAD WO CONTRAST 2020-06-26 20:44:17 Amy Curran General acute hospital LIPASE 2020-06-26 19:45:00 Amy Curran [facility] TROPONIN I 2020-06-26 19:45:00 Amy Curran [facility] COMP. METABOLIC PANEL 2020-06-26 19:45:00 [id number] CBC WITH DIFF 2020-06-26 19:45:00 Amy Curran [facility] PROTHROMBIN TIME / INR 2020-06-26 19:45:00 Amy Curran [facility] ACTIVATED PARTIAL 2020-06-26 19:45:00 [facility] (ID NOW RAPID 2020-06-26 19:45:00 Amy Curran U [facility] TESTING) [facility] NOTICE OF PRIVACY 2020-06-26 19:22:14 Doctor Unassigned, No [facility] PRACTICES Name Medical Branch Encounters Start End Encounter Admission Attending Care Care Encounter Source Date/Time Date/Time Type Type Clinicians Facility Department ID 2020-06-26 2020-06-26 Emergency VALENTINE Curran [id number] Univers 13:32:00 17:19:00 Amy Wong [id number] [facility] [place] [id number] [facility] [id number] [facility] 084 Branch 2020-06-26 2020-06-26 Emergency X [facility] ERT [id number] Univers 13:23:00 13:23:00 ity [facility] Results Test Description Test Time Test Comments [...] The calvariumand central skull base are unremarkable. [facility], Radiant Results Inft User - 06/26/2020 [...] = <0.012 See_Comment [Au tomated message] The [id number]) system which ge nerated this result tra [...] ? Lab Interpretation (test Normal code = 95115-2) [facility] (ID NOW RAPID TESTING)2020-06-26 20:13:00 Test Item Value Reference Range Interpretation Comments SARS-CoV-2 Rapid ID NOW Not Detected Not Detected (test code = 60770-9) TANISHA (test code = TANISHA) ID NOW COVID-19 Assay is an isothermal nucleic acid amplification test intended for the qualitative detection of nucleic acid from SARS-CoV-2 viral RNA in nasopharyngeal (TINSMITH HELPER) specimens. It is used under Emergency Use [...] indicated. Lab Interpretation Normal (test code = 45713-6) [facility]. METABOLIC PANEL (70815)2020-06-26 20:07:00 Test Item Value Reference Range Interpretation Comments NA (test code = 139 mmol/L 135-145 7088061418) K (test code = 4.2 mmol/L 3.5-5 3222766764) CL (test code = 102 mmol/L 98-108 7674904301) CO2 TOTAL (test code = 27 mmol/L 23-31 2195858319) AGAP (test code = 2-16 5932882343) BUN (test code = 17 mg/dL 7-23 0988318176) GLUCOSE (test code = 104 mg/dL 70-110 5536110238) CREATININE (test code 0.96 mg/dL 0.6-1.25 = 9248624882) TOTAL BILI (test code 0.8 mg/dL 0.1-1.1 = 6575116286) CALCIUM (test code = 9.3 mg/dL 8.6-10.6 6376044571) T PROTEIN (test code = 7.3 g/dL 6.3-8.2 7327388696) ALBUMIN (test code = 4.4 g/dL 3.5-5 2759351597) ALK PHOS (test code = 78 U/L 34-122 0183028777) ALTv (test code = 17 U/L 5-50 1742-6) AST(SGOT) (test code = 23 U/L 13-40 8446166806) eGFR Calculation mL/min/1.73m2 (Non-) (test code = 5174459036) eGFR Calculation mL/min/1.73m2 () (test code = 0911034024) TANISHA (test code = TANISHA) Association of [...] or urine or abnormalities in imaging tests). [facility], [id number] 20:07:00 Test Item Value Reference Range Interpretation Comments LIPASE (test code = 9043132465) 129 U/L 0-220 Lab Interpretation (test code = Normal 90744-7) [facility] WITH [id number] 20:07:00 Test Item Value Reference Range Interpretation Comments WBC (test code = See_Comment [Automated 4237-2) message] The sy stem which generated this result transmitted reference range : 4.20 - 10.70 10*3/?L. The reference range was not used to interpret this result as normal/abnormal . RBC (test code = See_Comment [Automated 458-9) message] The sy stem which generated this [...] RDW-SD (test code = 39.3 fL 38.5-51.6 77027-6) RDW-CV (test code = 12.1 % 12.1-15.4 788-0) PLT (test code = See_Comment L [Automated 777-3) message] The sy stem which generated this result transmitted reference range : 150 - 328 10*3/ ?L. The reference r mariana was not used to interpret this result as normal/abnormal . MPV (test code = 11.6 fL 9.8-13 75370-9) IPF % (test code = 6.9 % 1.2-10.7 Platelet count 4739398568) measured by fluorescence method. NRBC/100 WBC (test See_Comment [Automat ed code = 9083783037) message] The system which generated this result transmitted reference range : 0.0 - 10.0 /100 WBCs. The refer ence range was not u sed to interpret th is result as normal/abnormal . NRBC x10^3 (test code <0.01 See_Comment [Auto mated = 0720769948) message] The s ystem which generated this result transmitted reference range : 10*3/?L. The reference range was not used to interpret this result as normal/abnormal . GRAN MAT (NEUT) % 56.6 % (test code = 770-8) IMM GRAN % (test code 0.20 % = 7063862512) LYMPH % (test code = 31.1 % 736-9) MONO % (test code = 7.5 % 5905-5) EOS % (test code = 3.9 % 713-8) BASO % (test code = 0.7 % 706-2) GRAN MAT x10^3(ANC) 3.23 10*3/uL 1.99-6.95 (test code = 0912699778) IMM GRAN x10^3 (test <0.03 0-0.06 code = 0529354768) LYMPH x10^3 (test code 1.77 10*3/uL 1.09-3.23 = 731-0) MONO x10^3 (test code 0.43 10*3/uL 0.36-1.02 = 742-7) EOS x10^3 (test code = 0.22 10*3/uL 0.06-0.53 711-2) BASO x10^3 (test code 0.04 10*3/uL 0.01-0.09 = 704-7) Lab Interpretation Abnormal (test code = 38336-6) [facility] CenteraPTT2020-11-22 20:05:00 Test Item Value Reference Range Interpretation Comments APTT Patient (test See_Comment [Automat ed code = 3173-2) message] The system which generated this result transmitted reference range : 23 - 38 Seconds . The reference range was not used to interpr et this result as normal/abnormal . TANISHA (test code = TANISHA) The [facility] patient population mean normal value for aPTT is 30 seconds. Lab Interpretation Normal (test code = 11333-9) [facility] CenterPROTHROMBIN TIME / [id number] 20:03:00 Test Item Value Reference Range Interpretation [...] tions. Lab Interpretation (test Normal code = 76681-1) [facility]"
--- NOTE | 2022-03-31 14:52 | RAD REPORT ---
EXAM DESCRIPTION: RAD - Chest Single View - 03/31/2022 2:31 pm CLINICAL HISTORY: CHEST PAIN COMPARISON: Chest Single View dated 03/20/2016 FINDINGS: Lines: None. Lungs: No evidence of edema or pneumonia. Pleural: No significant pleural effusions or pneumothorax. Cardiac: The heart size is within normal limits. Bones: No acute fractures. Other: IMPRESSION: No acute cardiopulmonary disease.
[2022-03-31 15:04] LABS: Absolute Lymphocytes (CBC) 1.9 K/uL (0.7-4.9); Hematocrit 42.1 % (39.6-49.0); Lymphocytes % 30.5 % (15.3-44.8); MCV 88.8 fL (80-100); MPV 9.4 fL (7.6-11.3); RBC Red Blood Cell Count 4.74 M/uL (4.33-5.43)
[2022-03-31 15:06] LABS: Albumin 3.8 g/dL (3.4-5.0); Bilirubin Total 0.3 mg/dL (0.2-1.0); Potassium 3.6 mmol/L (3.5-5.1); Protein, Total 7.3 g/dL (6.4-8.2); Troponin High Sensitivity 5.2 pg/mL (<58.9)
--- NOTE | 2022-03-31 16:07 | RAD REPORT ---
EXAM DESCRIPTION: CTAbdomen Pelvis W Contrast - 03/31/2022 3:55 pm CLINICAL HISTORY: abd pain COMPARISON: Abdomen Pelvis W Contrast dated 01/23/2016 TECHNIQUE: CT of the abdomen and pelvis was performed. All CT scans are performed using dose optimization technique as appropriate and may include automated exposure control or mA/KV adjustment according to patient size. FINDINGS: Lower chest: Scattered coronary artery calcifications. Liver: No acute abnormality or suspicious lesions. Biliary: No biliary ductal dilatation. Stomach: No significant focal abnormality. Duodenum: No significant focal abnormality. Pancreas: No significant abnormality. Spleen: No significant abnormality. Adrenal: No suspicious lesions. Kidney/ureter: No hydronephrosis. Too small to characterize and/or benign appearing renal lesions are noted. Retroperitoneum: No retroperitoneal adenopathy. Vascular: No aneurysm. Bowel: No significant focal abnormality. Normal appendix. Peritoneum: No ascites or free air. Bladder: Grossly unremarkable. Reproductive: No adnexal masses. Bones: No acute fracture. Disc height loss at L5-S1. Other: n/a IMPRESSION: No acute intra-abdominal or pelvic finding. Normal appendix.
--- NOTE | 2022-03-31 18:46 | RAD REPORT ---
EXAM DESCRIPTION: US - Abdomen Exam Limited - 03/31/2022 5:55 pm CLINICAL HISTORY: ABD PAIN COMPARISON: Abdomen Pelvis W Contrast dated 03/31/2022 FINDINGS: The gallbladder demonstrates no gallstones. No pericholecystic fluid or gallbladder wall t hickening. The common bile duct is normal measuring 2 mm. The liver demonstrates no findings of intrahepatic biliary dilatation. IMPRESSION: Unremarkable examination.
--- NOTE | 2022-03-31 18:51 | EDPHYS ---
Physician Documentation [facility] Name: Pierce Hwang Age: 71 yrs Sex: Male : 1950 Arrival Date: 03/31/2022 Time: 13:56 Bed 7 Private MD: ED Physician Raúl Winston HPI: 03/31 17:04 This 71 yrs old Male presents to ER via Ambulatory with complaints of kb Abdominal Pain. 17:04 The patient presents with abdominal pain that is diffuse. Onset: The symptoms/episode kb began/occurred 10 day(s) ago. The symptoms do not radiate. Associated signs and symptoms: Pertinent positives: chest pain, diarrhea, Pertinent negatives: nausea and vomiting, fever. The symptoms are described as constant. Modifying factors: The symptoms are alleviated by nothing, the symptoms are aggravated by nothing. Severity of pain: At its worst the pain was mild moderate in the emergency department the pain is unchanged. The patient has not experienced similar symptoms in the past. The patient has not recently seen a physician. Patient reports diffuse abdominal pain with diarrhea for the last 10 days. States he has had chest pain on the left side with palpitations in the mornings that goes away after he starts walking. Denies nausea vomiting, fever, cough, congestion.. Historical: - Allergies: 14:06 NKDA; hb - PMHx: 14:06 Hyperlipidemia; Hypertension; hb - Immunization history:: Adult Immunizations up to date. - Social history:: Smoking status: Patient denies any tobacco usage or history of. ROS: 17:04 Constitutional: Negative for fever, chills, and weight loss. kb 17:04 Cardiovascular: Positive for chest pain, palpitations, Negative for edema, orthopnea, paroxysmal nocturnal dyspnea, acute changes. 17:04 Abdomen/GI: Positive for abdominal pain, diarrhea, Negative for nausea and vomiting. 17:04 All other systems are negative. Exam: 14:38 Constitutional: This is a well developed, well nourished patient who is awake, alert, kb and in no acute distress. Head/Face: Normocephalic, atraumatic. ENT: Moist Mucous membranes Cardiovascular: Regular rate and rhythm with a normal S1 and S2. No gallops, murmurs, or rubs. No pulse deficits. Respiratory: Respirations even and unlabored. No increased work of breathing. Talking in full sentences Skin: Warm, dry with normal turgor. Normal color. MS/ Extremity: Pulses equal, no cyanosis. Neurovascular intact. Full, normal range of motion. Neuro: Awake and alert, GCS 15, oriented to person, place, time, and situation. Moves all extremities. Normal gait. Psych: Awake, alert, with orientation to person, place and time. Behavior, mood, and affect are within normal limits. 14:38 ECG was reviewed by the Attending Physician. 14:38 Abdomen/GI: Inspection: abdomen appears normal, Bowel sounds: normal, Palpation: soft, in all quadrants, mild abdominal tenderness, in the right upper quadrant and right lower quadrant. Vital Signs: 14:04 BP 139 / 75; Pulse 59; Resp 18; Temp 97.8; Pulse Ox 100% on R/A; Weight 81.65 kg; hb Height 5 ft. 5 in. (165.10 cm); Pain 4/10; 16:45 BP 147 / 74; Pulse 51; kr3 17:45 BP 167 / 79; Pulse 52; Resp 18; Pulse Ox 99% on R/A; kr3 19:05 BP 150 / 72; Pulse 51; Resp 18; Pulse Ox 99% on R/A; kr3 14:04 Body Mass Index 29.95 (81.65 kg, 165.10 cm) MDM: 14:15 Patient medically screened. 14:57 Data reviewed: vital signs, nurses notes. Data interpreted: Pulse oximetry: on room air kb is 100 %. Interpretation: normal. 18:50 Counseling: I had a detailed discussion with the patient and/or guardian regarding: the historical points, exam findings, and any diagnostic results supporting the discharge/admit diagnosis, lab results, radiology results, the need for outpatient follow up, a family practitioner, to return to the emergency department if symptoms worsen or persist or if there are any questions or concerns that arise at home. 18:50 Data reviewed: I have discussed the patient's presentation/case with the attending Emergency Department Physician;. 03/31 14:11 Order name: Basic Metabolic Panel 03/31 14:11 Order name: CBC with Diff; Complete Time: 15:06 03/31 14:11 Order name: Troponin HS; Complete Time: 15: 03/31 14:11 Order name: XRAY Chest (1 view); Complete Time: 14:53 hb 03/31 14:11 Order name: CMP; Complete Time: 15:06 hb 03/31 14:11 Order name: Lipase; Complete Time: 15:06 hb 03/31 14:11 Order name: EKG; Complete Time: 14:12 hb 03/31 14:11 Order name: Cardiac monitoring; Complete Time: 14:34 hb 03/31 14:11 Order name: EKG - Nurse/Tech; Complete Time: 14:34 hb 03/31 14:11 Order name: IV Saline Lock; Complete Time: 14:15 hb 03/31 14:11 Order name: Labs collected and sent; Complete Time: 14:15 hb 03/31 14:27 Order name: CT Abd/Pelvis - IV Contrast Only 03/31 14:31 Order name: Abdomen ; Complete Time: 16:12 EDDE 03/31 16:12 Order name: US Abdomen Limited; Complete Time: 18:47 03/31 14:11 Order name: O2 Per Protocol; Complete Time: 14:26 03/31 14:11 Order name: O2 Sat Monitoring; Complete Time: 14:26 hb EC:38 Rate is 60 beats/min. Rhythm is regular. QRS Crosby is Normal. AL interval is normal at kb 162 msec. QRS interval is normal at 138 msec. QT interval is normal at 468 msec. Administered Medications: No medications were administered Disposition: 04/01 17:17 Co-signature as Attending Physician, Raúl Winston MD. rn Disposition Summary: 03/31/22 18:50 Discharge Ordered Location: Home kb Condition: Stable kb Diagnosis - Abdominal pain, Generalized kb Followup: kb - With: Emergency Department - When: As needed - Reason: Worsening of condition Followup: kb - With: Private Physician - When: 2 - 3 days - Reason: Recheck today's complaints, Continuance of care, Re-evaluation by your physician Discharge Instructions: - Discharge Summary Sheet kb - Abdominal Pain, Adult, Snui-ya-Juyg kb Forms: - Medication Reconciliation Form kb - Thank You Letter kb - Antibiotic Education kb - Prescription Opioid Use kb Prescriptions: - dicyclomine 20 mg Oral Tablet - take 1 tablet by ORAL route 4 times per day As needed; 20 tablet; Refills: 0, kb Product Selection Permitted Signatures: Dispatcher [employer] EDDE Rachel Oliver FNP-C FNP-Ckb Nieto, Raúl, MD MD rn Katalina Leung, RN RN hb Berta Wright RN RN ll1
--- NOTE | 2022-03-31 18:51 | ER ---
Nurse's Notes [facility] Name: Pierce Hwang Age: 71 yrs Sex: Male : 1950 Arrival Date: 03/31/2022 Time: 13:56 Bed 7 Private MD: Diagnosis: Abdominal pain, Generalized Presentation: 03/31 14:04 Chief complaint: Diffuse abdominal pain x 4 days, left sided chest pain upon waking hb that resolves as the day goes on x 7 days. Denies chest pain at this time. Coronavirus screen: At this time, the client does not indicate any symptoms associated with coronavirus-19. Ebola Screen: No symptoms or risks identified at this time. Risk Assessment: Do you want to hurt yourself or someone else? Patient reports no desire to harm self or others. Onset of symptoms was March 24, 2022. 14:04 Method Of Arrival: Ambulatory hb 14:04 Acuity: JOE 3 hb 18:13 Initial Sepsis Screen: Does the patient meet any 2 criteria? No. Patient's initial ll1 sepsis screen is negative. Does the patient have a suspected source of infection? Yes: Acute abdominal pain. Historical: - Allergies: 14:06 NKDA; hb - PMHx: 14:06 Hyperlipidemia; Hypertension; hb - Immunization history:: Adult Immunizations up to date. - Social history:: Smoking status: Patient denies any tobacco usage or history of. Screenin:13 Abuse screen: Denies threats or abuse. Nutritional screening: No deficits noted. ll1 Tuberculosis screening: No symptoms or risk factors identified. Fall Risk IV access (20 points). Total Mahan Fall Scale indicates No Risk (0-24 pts). Assessment: 14:30 General: Appears in no apparent distress. Behavior is calm, cooperative, appropriate ll1 for age. Pain: Denies pain. Pain: Pain does not radiate. Pain began 1 week. Cardiovascular: No deficits noted. GI: Bowel sounds present X 4 quads. Abd is soft and non tender X 4 quads. Reports lower abdominal pain, upper abdominal pain, diarrhea, rectal bleeding. 15:30 Reassessment: No changes from previously documented assessment. ll1 16:30 Reassessment: No changes from previously documented assessment. ll1 17:30 Reassessment: No changes from previously documented assessment. ll1 19:14 Reassessment: No changes from previously documented assessment. Patient and/or family kr3 updated on plan of care and expected duration. Pain level reassessed. Patient is alert, oriented x 3, equal unlabored respirations, skin warm/dry/pink. Vital Signs: 14:04 BP 139 / 75; Pulse 59; Resp 18; Temp 97.8; Pulse Ox 100% on R/A; Weight 81.65 kg; hb Height 5 ft. 5 in. (165.10 cm); Pain 4/10; 16:45 BP 147 / 74; Pulse 51; kr3 17:45 BP 167 / 79; Pulse 52; Resp 18; Pulse Ox 99% on R/A; kr3 19:05 BP 150 / 72; Pulse 51; Resp 18; Pulse Ox 99% on R/A; kr3 14:04 Body Mass Index 29.95 (81.65 kg, 165.10 cm) hb ED Course: 13:56 Patient arrived in ED. as 14:06 Triage completed. hb 14:06 Arm band placed on. hb 14:15 [facility]-C [facility] kb 14:15 Raúl Winston MD is Attending Physician. kb 14:20 Inserted saline lock: 22 gauge in right antecubital area, using aseptic technique. ll1 Blood collected. 14:23 Altagracia Mcclure, RN is Primary Nurse. kr3 14:33 XRAY Chest (1 view) In Process Unspecified. EDMS 15:57 Abdomen In Process Unspecified. EDMS 17:56 Basic Metabolic Panel Sent. kr3 17:57 US Abdomen Limited In Process Unspecified. EDMS 18:12 No provider procedures requiring assistance completed. Patient maintains SpO2 ll1 saturation greater than 95% on room air. 18:13 Patient has correct armband on for positive identification. Bed in low position. Call ll1 light in reach. Client placed on continuous cardiac and pulse oximetry monitoring. NIBP monitoring applied. Administered Medications: No medications were administered Medication: 18:13 VIS not applicable for this client. ll1 Outcome: 18:50 Discharge ordered by . kb 19:14 Patient left the ED. kr3 Signatures: Dispatcher [employer] EDMS Rachel Oliver FNP-C FNP-Julieta Powell as Katalina Leung RN RN Berta Wright RN RN ll1 Altagracia Mcclure, RN RN kr3
[2022-03-31 21:00] VITALS: TEMP 97.8
[2022-03-31 21:05] VITALS: O2SAT 99
[2022-03-31 21:07] VITALS: BP 150/72
--- NOTE | 2022-04-01 12:50 | EKG ---
Test Date: 2022-03-31 Test Time: 14:35:07 Instructor [employer]: NATTYL MEASUREMENT RESULTS: Intervals: Rate: 60 RI: 162 QRSD: 138 QT: 468 QTc: 468 [place]: P: 75 RI: 162 QRS: 61 T: 26 INTERPRETIVE STATEMENTS: Normal sinus rhythm Right bundle branch block Abnormal ECG Compared to ECG 03/20/2016 10:05:15 Sinus bradycardia no longer present Electronically Signed On 04-01-22 12:49:10 CDT by Erlin Mccord
== END 2022-03-31 19:14 | disposition home or self-care (01) ==
LOC: ER 13:54
DX: R10.84 Generalized abdominal pain (principal); R19.7 Diarrhea, unspecified; R07.89 Other chest pain; I10 Essential (primary) hypertension
CPT/HCPCS: 93005; 85025; 36415; 84484; 83690; 80053; 74177; 71045; 76705; 99284; Q9967

== ENCOUNTER 2022-08-16 11:45 | Emergency (ER) | payer OTHER ==
--- OUTSIDE RECORDS SUMMARY | 2022-08-16 11:48 | XMS REPORT | Continuity of Care Document ---
:1950 Author Organization [facility] t Address [address] [place] [address] Care Team Providers Name Role Phone Magdy NATALIEBobbyabdi Reid Attending Clinician Payers Payer Name Policy Type Policy Number Effective Date Expiration Date S ource Problems Condition Condition Condition Status Onset Resolution Last Treating Co mments Source Name Details Category Date Date Treatment Clinician Date No known No known Disease Unive rs active active ity of problems problems [facility] Allergies, Adverse Reactions, Alerts Allergy Allergy Status Severity Reaction(s) Onset Inactive Treating Comm ents Source Name Type Date Date Clinician NO KNOWN Drug Active Univers ALLERGIE Class ity of S [facility] Social History Social Habit Start Date Stop Date Quantity Comments Source Sex Assigned At Uni versity [facility] Exposure to SARS-CoV-2 Not sure [facility] [place] (event) [facility] Smoking Status Start Date Stop Date Source Unknown if ever smoked Universit [facility] Medications Ordered Filled Start Stop Current Ordering [...] 1500, KVNG No known No Univers medications [facility] Vital Signs Vital Name Observation Time Observation Value Comments Source Systolic blood 2020-06-26 22:00:00 152 mm[Hg] Univer sity of pressure [facility] Diastolic blood 2020-06-26 22:00:00 75 mm[Hg] Unive rsity of [facility] Heart rate 2020-06-26 22:00:00 52 /min [facility] Respiratory rate 2020-06-26 22:00:00 18 /min [facility] Oxygen saturation in 2020-06-26 22:00:00 99 /min [facility] Arterial blood by [facility] Pulse oximetry Branch Body temperature 2020-06-26 19:38:00 36.67 Ruth Ann [facility] Body weight 2020-06-26 19:38:00 86.183 kg [facility] Procedures Procedure Date / Time Performing Clinician Source Performed CT HEAD WO CONTRAST 2020-06-26 20:44:17 Amy Curran [facility] LIPASE 2020-06-26 19:45:00 Amy Curran [facility] TROPONIN I 2020-06-26 19:45:00 Amy Curran [facility] COMP. METABOLIC PANEL 2020-06-26 19:45:00 [id number] CBC WITH DIFF 2020-06-26 19:45:00 Amy Curran [facility] PROTHROMBIN TIME / INR 2020-06-26 19:45:00 Amy Curran U [facility] ACTIVATED PARTIAL 2020-06-26 19:45:00 Amy Curran [facility] COVID-19 (ID NOW RAPID 2020-06-26 19:45:00 Amy Curran U [facility] TESTING) [facility] NOTICE OF PRIVACY 2020-06-26 19:22:14 Doctor Unassigned, No [facility] PRACTICES Name Medical Branch Encounters Start End Encounter Admission Attending Care Care Encounter Source Date/Time Date/Time Type Type Clinicians Facility Department ID 2020-06-26 2020-06-26 Emergency VALENTINE Curran [id number] Univers 13:32:00 17:19:00 Amy Wong [id number] itkentrell [place] [id number] [facility] [id number] [facility] 084 Branch 2020-06-26 2020-06-26 Emergency X [facility] ERT [id number] Univers 13:23:00 13:23:00 ity [facility] Results Test Description Test Time [...] The calvariumand central skull base are unremarkable. [facility], Radiant Results Inft User - [...] = <0.012 See_Comment [Au tomated message] The [id number]) system which nerated this result tra nsmitted reference range [...] ? Lab Interpretation (test Normal code = 84356-1) [facility]ID [facility])2020-06-26 20:13:00 Test Item Value Reference Range Interpretation Comments SARS-CoV-2 Rapid ID NOW Not Detected Not Detected (test code = 94087-8) TANISHA (test code = TANISHA) ID NOW COVID-19 Assay is an isothermal nucleic acid amplification test intended for the qualitative detection of nucleic acid from SARS-CoV-2 viral RNA in nasopharyngeal (ENVIRONMENTAL SCIENCE INSTRUCTOR) specimens. It is used under Emergency Use [...] indicated. Lab Interpretation Normal (test code = 63373-1) [facility]. METABOLIC PANEL (14257)2020-06-26 20:07:00 Test Item Value Reference Range Interpretation Comments NA (test code = 139 mmol/L 135-145 1433478095) K (test code = 4.2 mmol/L 3.5-5 6508323090) CL (test code = 102 mmol/L 98-108 2513598007) CO2 TOTAL (test code = 27 mmol/L 23-31 4585711807) AGAP (test code = 2-16 1175034166) BUN (test code = 17 mg/dL 7-23 3515302452) GLUCOSE (test code = 104 mg/dL 70-110 8746913203) CREATININE (test code 0.96 mg/dL 0.6-1.25 = 8365288422) TOTAL BILI (test code 0.8 mg/dL 0.1-1.1 = 7660029093) CALCIUM (test code = 9.3 mg/dL 8.6-10.6 6698592588) T PROTEIN (test code = 7.3 g/dL 6.3-8.2 6802996328) ALBUMIN (test code = 4.4 g/dL 3.5-5 2096124290) ALK PHOS (test code = 78 U/L 34-122 1115645239) ALTv (test code = 17 U/L 5-50 1742-6) AST(SGOT) (test code = 23 U/L 13-40 5612077030) eGFR Calculation mL/min/1.73m2 (Non-) (test code = 3865379365) eGFR Calculation mL/min/1.73m2 () (test code = 8499822739) TANISHA (test code = TANISHA) Association of [...] or urine or abnormalities in imaging tests). [facility] [id number] 20:07:00 Test Item Value Reference Range Interpretation Comments LIPASE (test code = 2183075300) 129 U/L 0-220 Lab Interpretation (test code = Normal 70411-6) [facility] [id number] 20:07:00 Test Item Value Reference Range Interpretation Comments WBC (test code = See_Comment [Automated 0207-2) message] The sy stem which generated this result transmitted reference range : 4.20 - 10.70 10*3/?L. The reference range was not used to interpret this result as normal/abnormal . RBC (test code = See_Comment [Automated 782-7) message] The sy stem which generated this [...] RDW-SD (test code = 39.3 fL 38.5-51.6 80253-1) RDW-CV (test code = 12.1 % 12.1-15.4 788-0) PLT (test code = See_Comment L [Automated 777-3) message] The sy stem which generated this result transmitted reference range : 150 - 328 10*3/ ?L. The reference r mariana was not used to interpret this result as normal/abnormal . MPV (test code = 11.6 fL 9.8-13 51373-4) IPF % (test code = 6.9 % 1.2-10.7 Platelet count 9250043250) measured by fluorescence method. NRBC/100 WBC (test See_Comment [Automat ed code = 5368548807) message] The system which generated this result transmitted reference range : 0.0 - 10.0 /100 WBCs. The refer ence range was not u sed to interpret th is result as normal/abnormal . NRBC x10^3 (test code <0.01 See_Comment [Auto mated = 0337370051) message] The s ystem which generated this result transmitted reference range : 10*3/?L. The reference range was not used to interpret this result as normal/abnormal . GRAN MAT (NEUT) % 56.6 % (test code = 770-8) IMM GRAN % (test code 0.20 % = 9270969406) LYMPH % (test code = 31.1 % 736-9) MONO % (test code = 7.5 % 5905-5) EOS % (test code = 3.9 % 713-8) BASO % (test code = 0.7 % 706-2) GRAN MAT x10^3(ANC) 3.23 10*3/uL 1.99-6.95 (test code = 9577049928) IMM GRAN x10^3 (test <0.03 0-0.06 code = 2811259480) LYMPH x10^3 (test code 1.77 10*3/uL 1.09-3.23 = 731-0) MONO x10^3 (test code 0.43 10*3/uL 0.36-1.02 = 742-7) EOS x10^3 (test code = 0.22 10*3/uL 0.06-0.53 711-2) BASO x10^3 (test code 0.04 10*3/uL 0.01-0.09 = 704-7) Lab Interpretation Abnormal (test code = 38343-5) [facility]:05:00 Test Item Value Reference Range Interpretation Comments APTT Patient (test See_Comment [Automat ed code = 3173-2) message] The system which generated this result transmitted reference range : 23 - 38 Seconds . The reference range was not used to interpr et this result as normal/abnormal . TANISHA (test code = TANISHA) The [facility] patient population mean normal value for aPTT is 30 seconds. Lab Interpretation Normal (test code = 98739-6) [facility] / [id number] 20:03:00 Test Item Value Reference Range Interpretation [...] tions. Lab Interpretation (test Normal code = 94384-4) [facility]"
[2022-08-16] MEDS ORDERED: ASPIRIN 81 MG CHEWABLE TABLET ONE (12:34)
[2022-08-16 12:37] LABS: Absolute Lymphocytes (CBC) 1.6 K/uL (0.7-4.9); Hematocrit 45.5 % (39.6-49.0); Lymphocytes % 28.6 % (15.3-44.8); MCV 90.1 fL (80-100); MPV 9.1 fL (7.6-11.3); RBC Red Blood Cell Count 5.05 M/uL (4.33-5.43)
--- NOTE | 2022-08-16 12:42 | RAD REPORT ---
EXAM DESCRIPTION: RAD - Chest Single View - 08/16/2022 12:35 pm CLINICAL HISTORY: CHEST PAIN COMPARISON: Chest Single View dated 03/31/2022; Chest Single View dated 03/20/2016 FINDINGS: Lines: None. Lungs: No evidence of edema or pneumonia. Pleural: No significant pleural effusions or pneumothorax. Cardiac: The heart size is within normal limits. Mediastinum: Within normal limits. Bones: No acute fractures. Other: None IMPRESSION: No acute cardiopulmonary disease.
[2022-08-16 13:00] LABS: Potassium 4.2 mmol/L (3.5-5.1); Troponin High Sensitivity 4.7 pg/mL (<58.9)
--- NOTE | 2022-08-16 15:39 | EDPHYS ---
Physician Documentation [facility] Name: Pierce Hwang Age: 71 yrs Sex: Male : 1950 Arrival Date: 08/16/2022 Time: 11:47 Bed 16 Private MD: ED Physician Stan Hancock HPI: 08/16 12:00 This 71 yrs old Male presents to ER via Ambulatory with complaints of abnormal jh7 ekg, Chest Pain, Irregular Pulse - 40s. 12:00 Onset: The symptoms/episode began/occurred 4 day(s) ago. Associated signs and symptoms: jh7 Pertinent positives: fatigue, Pertinent negatives: abdominal pain, constipation, fever, headache, shortness of breath, vomiting. 71-year-old male presents for fatigue and chest pain for the past 4 days. Reports that he does not take any medication. Reports that he was sent from a local clinic due to an abnormal EKG.. Historical: - Allergies: 11:59 NKDA; aa5 - PMHx: 11:59 Hyperlipidemia; Hypertension; aa5 - Immunization history:: Adult Immunizations unknown. - Social history:: Smoking status: Patient denies any tobacco usage or history of. ROS: 12:00 Eyes: Negative for injury, pain, redness, and discharge, ENT: Negative for injury, jh7 pain, and discharge, Neck: Negative for injury, pain, and swelling, Respiratory: Negative for shortness of breath, cough, wheezing, and pleuritic chest pain, Abdomen/GI: Negative for abdominal pain, nausea, vomiting, diarrhea, and constipation, Back: Negative for injury and pain, MS/Extremity: Negative for injury and deformity, Skin: Negative for injury, rash, and discoloration, Neuro: Negative for headache, weakness, numbness, tingling, and seizure. 12:00 Constitutional: Positive for fatigue, Negative for body aches, chills, fever. 12:00 Cardiovascular: Positive for chest pain, palpitations, Negative for orthopnea. 12:00 All other systems are negative. Exam: 12:00 Constitutional: This is a well developed, well nourished patient who is awake, alert, jh7 and in no acute distress. Head/Face: Normocephalic, atraumatic. Eyes: Pupils equal round and reactive to light, extra-ocular motions intact. Lids and lashes normal. Conjunctiva and sclera are non-icteric and not injected. Cornea within normal limits. Periorbital areas with no swelling, redness, or edema. Cardiovascular: Regular rate and rhythm with a normal S1 and S2. No gallops, murmurs, or rubs. Normal PMI, no JVD. No pulse deficits. Respiratory: Lungs have equal breath sounds bilaterally, clear to auscultation and percussion. No rales, rhonchi or wheezes noted. No increased work of breathing, no retractions or nasal flaring. Abdomen/GI: Soft, non-tender, with normal bowel sounds. No distension or tympany. No guarding or rebound. No evidence of tenderness throughout. Back: No spinal tenderness. No costovertebral tenderness. Full range of motion. Skin: Warm, dry with normal turgor. Normal color with no rashes, no lesions, and no evidence of cellulitis. MS/ Extremity: Pulses equal, no cyanosis. Neurovascular intact. Full, normal range of motion. Neuro: Awake and alert, GCS 15, oriented to person, place, time, and situation. Motor strength 5/5 in all extremities. Sensory grossly intact. Normal gait. Vital Signs: 11:57 BP 136 / 76; Pulse 54; Resp 16 S; Temp 97.8(TE); Pulse Ox 98% on R/A; Weight 84.82 kg aa5 (R); Height 5 ft. 5 in. (165.10 cm) (R); Pain 0/10; 12:48 BP 130 / 65; Pulse 56; Resp 18; Pulse Ox 98% on R/A; ld1 14:33 BP 138 / 69; Pulse 50; Resp 15; Pulse Ox 98% on R/A; ld1 15:53 BP 136 / 71; Pulse 54; Resp 18; Pulse Ox 98% on R/A; Pain 8/10; ld1 11:57 Body Mass Index 31.12 (84.82 kg, 165.10 cm) aa5 MDM: 12:06 Patient medically screened. 7 15:40 Differential diagnosis: viral Infection, pneumonia Acute IN, electrolyte imbalance, jh7 anemia. Data reviewed: vital signs, nurses notes, lab test result(s), EKG, radiologic studies, plain films. Consideration of Admission/Observation Escalation of care including admission/observation considered. Chest pain resolved shortly after giving aspirin, repeat troponin negative, vital signs remained stable. Independent interpretation of the following test(s) in the Emergency Department EKG: See my EKG interpretation above X-Ray: My interpretation is Chest x-ray. Care significantly affected by the following chronic conditions: Hypertension, Patient reports that he was diagnosed with hypertension 15 years ago, but has not been on blood pressure medicine for years due to it making him feel bad.. Counseling: I had a detailed discussion with the patient and/or guardian regarding: the historical points, exam findings, and any diagnostic results supporting the discharge/admit diagnosis, the need for outpatient follow up, a laboratory administrative director, to return to the emergency department if symptoms worsen or persist or if there are any questions or concerns that arise at home. 08/16 12:01 Order name: Basic Metabolic Panel; Complete Time: 13:09 [facility] 08/16 12:01 Order name: CBC with Diff; Complete Time: 12:55 [facility] 08/16 12:01 Order name: Troponin HS; Complete Time: 13:09 [facility] 08/16 12:01 Order name: XRAY Chest (1 view); Complete Time: 12:55 [facility] 08/16 13:14 Order name: TSH; Complete Time: 15:23 7 08/16 15:00 Order name: Troponin High Sensitivity; Complete Time: 15:38 7 08/16 12:01 Order name: EKG; Complete Time: 12:02 08/16 12:01 Order name: Cardiac monitoring; Complete Time: 12:19 [facility] 08/16 12:01 Order name: EKG - Nurse/Tech; Complete Time: 12:19 08/16 12:01 Order name: IV Saline Lock; Complete Time: 12:35 08/16 12:01 Order name: Labs collected and sent; Complete Time: 12:35 [facility] 08/16 12:01 Order name: O2 Per Protocol; Complete Time: 12: 08/16 12:01 Order name: O2 Sat Monitoring; Complete Time: 12: ld EC:00 Rate is 51 beats/min. Rhythm is regular. QRS [place] is Normal. PA interval is normal at 7 146 msec. QRS interval is normal at 134 msec. No Q waves. T waves are Normal. No ST changes noted. Clinical impression: Sinus bradycardia with right bundle branch block. Administered Medications: 12:35 Drug: Aspirin Chewable Tablet 324 mg Route: PO; ld1 Disposition Summary: 08/16/22 15:39 Discharge Ordered Location: Home [facility] Problem: new [facility] Symptoms: have improved [facility] Condition: Stable [facility] Diagnosis - Chest pain, unspecified [facility] Followup: [facility] - With: Ramon Hirsch MD - When: 1 - 2 days - Reason: Recheck today's complaints Discharge Instructions: - Discharge Summary Sheet [facility] - Nonspecific Chest Pain, Adult [facility] - Palpitations [facility] Forms: - Medication Reconciliation Form [facility] - Thank You Letter [facility] Signatures: Dispatcher [employer] Migdalia Alfaro RN RN aa5 Fabiola Ware RN RN ld1 Suzanne Mckeon FNP SEX THERAPIST [facility]
--- NOTE | 2022-08-16 15:39 | ER ---
Nurse's Notes [facility] Name: Pierce Hwang Age: 71 yrs Sex: Male : 1950 Arrival Date: 08/16/2022 Time: 11:47 Bed 16 Private MD: Diagnosis: Chest pain, unspecified Presentation: 08/16 11:57 Chief complaint: Patient states: chest pain that began 3-4 days ago. Pt reports he was aa5 sent here from a clinic. Coronavirus screen: At this time, the client does not indicate any symptoms associated with coronavirus-19. Ebola Screen: Patient denies travel to an Ebola-affected area in the 21 days before illness onset. Initial Sepsis Screen: Does the patient meet any 2 criteria? No. Patient's initial sepsis screen is negative. Does the patient have a suspected source of infection? No. Patient's initial sepsis screen is negative. Risk Assessment: Do you want to hurt yourself or someone else? Patient reports no desire to harm self or others. Onset of symptoms was August 2022. 11:57 Acuity: JOE 3 aa5 11:57 Method Of Arrival: Ambulatory aa5 Historical: - Allergies: 11:59 NKDA; aa5 - PMHx: 11:59 Hyperlipidemia; Hypertension; aa5 - Immunization history:: Adult Immunizations unknown. - Social history:: Smoking status: Patient denies any tobacco usage or history of. Screenin:53 [facility] ED Fall Risk Assessment (Adult) History of falling in the last 3 months, ld1 including since admission No falls in past 3 months (0 pts). Abuse screen: Denies threats or abuse. Denies injuries from another. Nutritional screening: No deficits noted. Tuberculosis screening: No symptoms or risk factors identified. Assessment: 15:53 General: Appears in no apparent distress. comfortable, Behavior is calm, cooperative, ld1 appropriate for age. Pain: Denies pain. Neuro: Level of Consciousness is awake, alert, obeys commands, Oriented to person, place, time, situation. Cardiovascular: Capillary refill < 3 seconds Patient's skin is warm and dry. Rhythm is sinus rhythm Chest pain episodes are intermittent. Respiratory: Airway is patent Respiratory effort is even, unlabored. GI: Abdomen is flat, non-distended. : No signs and/or symptoms were reported regarding the genitourinary system. EENT: No signs and/or symptoms were reported regarding the EENT system. Derm: No signs and/or symptoms reported regarding the dermatologic system. Musculoskeletal: No signs and/or symptoms reported regarding the musculoskeletal system. Vital Signs: 11:57 BP 136 / 76; Pulse 54; Resp 16 S; Temp 97.8(TE); Pulse Ox 98% on R/A; Weight 84.82 kg aa5 (R); Height 5 ft. 5 in. (165.10 cm) (R); Pain 0/10; 12:48 BP 130 / 65; Pulse 56; Resp 18; Pulse Ox 98% on R/A; ld1 14:33 BP 138 / 69; Pulse 50; Resp 15; Pulse Ox 98% on R/A; ld1 15:53 BP 136 / 71; Pulse 54; Resp 18; Pulse Ox 98% on R/A; Pain 8/10; ld1 11:57 Body Mass Index 31.12 (84.82 kg, 165.10 cm) aa5 ED Course: 11:47 Patient arrived in ED. as 11:57 Arm band placed on. aa5 11:59 Triage completed. aa5 12:00 Fabiola Ware, RAJESH is Primary Nurse. ld1 12:06 [facility] jh7 12:06 Stan Hancock MD is Attending Physician. [facility] 12:28 Initial lab(s) drawn, by hi, sent to lab. Inserted saline lock: 20 gauge in left jl7 antecubital area, using aseptic technique. Blood collected. 12:32 EKG done, by ED staff, reviewed by Suzanne ESTRADA. Patient maintains SpO2 jl7 saturation greater than 95% on room air. 12:37 XRAY Chest (1 view) In Process Unspecified. EDMS 15:38 Ramon Hirsch MD is Referral Physician. [facility] 15:53 Patient has correct armband on for positive identification. Placed in gown. Bed in low ld1 position. Call light in reach. Side rails up X2. security monitor on. Pulse ox on. NIBP on. Door closed. Noise minimized. Warm blanket given. 15:53 No provider procedures requiring assistance completed. IV discontinued, intact, ld1 bleeding controlled, No redness/swelling at site. Administered Medications: 12:35 Drug: Aspirin Chewable Tablet 324 mg Route: PO; ld1 Medication: 15:53 VIS not applicable for this client. ld1 Outcome: 15:39 Discharge ordered by MD. cotto 15:53 Discharged to home ambulatory. ld1 15:53 Condition: stable 15:53 Discharge instructions given to patient, Instructed on discharge instructions, follow up and referral plans. Demonstrated understanding of instructions, follow-up care. 15:56 Patient left the ED. ld1 Signatures: Dispatcher [employer] Julieta Prescott Audri, RN RN aa5 Humble Schmitz RN RN jl7 Fabiola Ware RN RN ld1 Suzanne Mckeon FNP FNP 7
[2022-08-16 16:19] VITALS: TEMP 97.8; O2SAT 98
[2022-08-16 16:22] VITALS: BP 136/71
--- NOTE | 2022-08-17 10:50 | EKG ---
Test Date: 2022-08-16 Test Time: 12:08:54 Dial Marker: AVA MEASUREMENT RESULTS: Intervals: Rate: 51 KS: 146 QRSD: 134 QT: 466 QTc: 429 Junior: P: 53 KS: 146 QRS: 38 T: 37 INTERPRETIVE STATEMENTS: Sinus bradycardia Right bundle branch block Abnormal ECG Compared to ECG 03/31/2022 14:35:07 Sinus rhythm no longer present Electronically Signed On 08-17-22 10:46:45 [employer]NA[employer] by Ramon Hirsch
== END 2022-08-16 15:56 | disposition home or self-care (01) ==
LOC: ER 11:45
DX: R07.89 Other chest pain (principal); R94.31 Abnormal electrocardiogram [ECG] [EKG]; R53.83 Other fatigue; I10 Essential (primary) hypertension
CPT/HCPCS: 36415; 71045; 80048; 84443; 84484; 85025; 93005; 99285